=== PATIENT | female | born 1945 | race Caucasian/White ===

== ENCOUNTER 2016-06-02 15:00 | Emergency (ER) | payer MEDICARE | END 2016-06-02 16:20 | disposition home or self-care (01) | LOC: ER1 15:00 | DX: T52.8X1A Toxic effect of other organic solvents, accidental (unintentional), initial encounter (principal); T23.611A Corrosion of second degree of right thumb (nail), initial encounter; E11.628 Type 2 diabetes mellitus with other skin complications; L03.011 Cellulitis of right finger; I10 Essential (primary) hypertension; J45.909 Unspecified asthma, uncomplicated; Z23 Encounter for immunization; Z88.2 Allergy status to sulfonamides; Y92.009 Unspecified place in unspecified non-institutional (private) residence as the place of occurrence of the external cause; Z79.84 Long term (current) use of oral hypoglycemic drugs; Z79.82 Long term (current) use of aspirin; Z79.899 Other long term (current) drug therapy | CPT/HCPCS: 90471; 90715; 99283 ==

== ENCOUNTER 2016-06-15 23:48 | Observation (INO) | payer MEDICARE, OTHER ==
[~2016-06-15] VITALS: Ht 157.5 cm; Wt 103.9 kg
[2016-06-16 03:41] LABS: HEMOGLOBIN 12.3 gm/dl (12.3-15.3); RED BLOOD COUNT 4.05 M/UL (4.00-5.10); WHITE BLOOD COUNT 5.5 K/UL (4.5-11.0)
[2016-06-16 04:02] LABS: BUN/CREATININE RATIO 23 (0-10)
[2016-06-16] MEDS ORDERED: SYNTHROID50 MCG PO (17:56)
[2016-06-16] MEDS ORDERED: POTASSIUM CHLO20 ME1 PO (17:59)
[2016-06-16] MEDS ORDERED: CYMBALTA60 MG PO (18:00)
[2016-06-16] MEDS ORDERED: LOSARTAN-HCTZ1 EACH PO (18:00)
[2016-06-16] MEDS ORDERED: METFORMIN HCL500 MG PO (18:01)
[2016-06-16] MEDS ORDERED: SIMVASTATIN20 MG PO (18:01)
[2016-06-16] MEDS ORDERED: SEROQUEL400 MG PO (18:01)
[2016-06-16] MEDS ORDERED: WELCHOL625 MG PO (19:00)
[2016-06-16] MEDS ORDERED: PRILOSEC OTC20 MG PO (19:01)
== END 2016-06-16 19:52 | disposition home or self-care (01) ==
LOC: ER1 23:48 → M/S 06-16 05:00 → ZEROF 06-16 05:00 → M/S 06-16 06:07
PROVIDERS: Physician Assistant; ADMIT Hospitalist
DX: R07.9 Chest pain, unspecified (principal); R42 Dizziness and giddiness; E03.9 Hypothyroidism, unspecified; I25.10 Atherosclerotic heart disease of native coronary artery without angina pectoris; I10 Essential (primary) hypertension; E11.9 Type 2 diabetes mellitus without complications; E78.5 Hyperlipidemia, unspecified; K52.9 Noninfective gastroenteritis and colitis, unspecified; E66.9 Obesity, unspecified; Z79.899 Other long term (current) drug therapy; Z82.49 Family history of ischemic heart disease and other diseases of the circulatory system; Z68.41 Body mass index [BMI] 40.0-44.9, adult; Z85.828 Personal history of other malignant neoplasm of skin
CPT/HCPCS: ECHO; 36415; 71010; 71020; 78452; 80053; 80061; 81001; 82550; 82553; 82962; 83874; 83880; 84439; 84443; 84484; 85025; 87086; 93005; 93017; 93306; 99285; A9502; G0378; J2785

== ENCOUNTER 2016-06-23 13:14 | Emergency (ER) | payer MEDICARE ==
[~2016-06-23 13:14] MED LIST: CYMBALTA60 MG PO; LOSARTAN-HCTZ1 EACH PO; METFORMIN HCL500 MG PO; POTASSIUM CHLO20 ME1 PO; PRILOSEC OTC20 MG PO; SEROQUEL400 MG PO; SIMVASTATIN20 MG PO; SYNTHROID50 MCG PO; WELCHOL625 MG PO
[2016-06-23 14:31] LABS: HEMOGLOBIN 12.8 gm/dl (12.3-15.3); RED BLOOD COUNT 4.26 M/UL (4.00-5.10); WHITE BLOOD COUNT 5.6 K/UL (4.5-11.0)
[2016-06-23 14:46] LABS: BUN/CREATININE RATIO 18 (0-10)
== END 2016-06-23 20:57 | disposition home or self-care (01) ==
LOC: ER1 13:14
PROVIDERS: Emergency Medicine
DX: R10.31 Right lower quadrant pain (principal); E11.9 Type 2 diabetes mellitus without complications; I10 Essential (primary) hypertension; R11.0 Nausea; Z87.442 Personal history of urinary calculi; Z90.49 Acquired absence of other specified parts of digestive tract
CPT/HCPCS: 36415; 80053; 81001; 82150; 83605; 83690; 85025; 87086; 96361; 96374; 96375; 99284; J2270; J2405; J7050; Q9962

== ENCOUNTER → 2016-07-25 | Outpatient (CLI) | payer MEDICARE | LOC: RAD 10:46 | DX: K92.2 Gastrointestinal hemorrhage, unspecified (principal); R19.7 Diarrhea, unspecified; K57.30 Diverticulosis of large intestine without perforation or abscess without bleeding | CPT/HCPCS: 74270 ==

== ENCOUNTER → 2020-06-16 | Outpatient (CLI) | payer MEDICARE, OTHER ==
[~2020-06-16] MED LIST changes: +AMLODIPINE BESY10 MG PO; +BUSPAR 10MG10 MG PO; +IMDUR ER TAB 6060 MG PO; +MICROZIDE12.5 MG PO; +SYNJARDY PO; +VITAMIN D35000 UNI1 PO
== END ==
LOC: ECHO 05-22 12:00 → NM 05-22 13:00 → ECHO 12:00
DX: I20.9 Angina pectoris, unspecified (principal); I45.10 Unspecified right bundle-branch block
CPT/HCPCS: ECHO; 78452; 93017; 93306; A9502; J2785

== ENCOUNTER → 2020-08-21 | Outpatient (CLI) | payer MEDICARE | LOC: RT 13:02 | DX: I10 Essential (primary) hypertension (principal); I45.10 Unspecified right bundle-branch block; R94.31 Abnormal electrocardiogram [ECG] [EKG] | CPT/HCPCS: 93005 ==

== ENCOUNTER → 2020-12-21 | Outpatient (CLI) | payer MEDICARE | LOC: EXRD 09:38 | DX: M25.542 Pain in joints of left hand (principal); M25.541 Pain in joints of right hand; R76.8 Other specified abnormal immunological findings in serum; M19.042 Primary osteoarthritis, left hand; M19.041 Primary osteoarthritis, right hand | CPT/HCPCS: 73130 ==

== ENCOUNTER → 2021-03-25 | Outpatient (CLI) | payer MEDICARE | LOC: HEART 5 14:09 | DX: R06.02 Shortness of breath (principal) | CPT/HCPCS: 94010; 94729 ==

== ENCOUNTER → 2021-04-07 | Outpatient (CLI) | payer MEDICARE | LOC: HEART 5 08:19 | DX: R07.9 Chest pain, unspecified (principal); R00.2 Palpitations ==

== ENCOUNTER → 2021-04-08 | Outpatient (CLI) | payer MEDICARE | LOC: KOH-I 13:56 → EXRD 15:00 → KOH-I 15:00 | DX: J98.4 Other disorders of lung (principal); R22.0 Localized swelling, mass and lump, head; R22.1 Localized swelling, mass and lump, neck; E04.2 Nontoxic multinodular goiter; R59.0 Localized enlarged lymph nodes; K11.8 Other diseases of salivary glands | CPT/HCPCS: 71250; 76536 ==

== ENCOUNTER → 2021-04-22 | Outpatient (CLI) | payer MEDICARE | LOC: SLEEP 12:03 | DX: G47.33 Obstructive sleep apnea (adult) (pediatric) (principal); J98.4 Other disorders of lung; G47.61 Periodic limb movement disorder | CPT/HCPCS: 95811 ==

== ENCOUNTER → 2021-07-23 | Outpatient (CLI) | payer MEDICARE | LOC: KOH-I 12:21 | DX: M54.50 Low back pain, unspecified (principal); M47.816 Spondylosis without myelopathy or radiculopathy, lumbar region; M16.0 Bilateral primary osteoarthritis of hip; M19.042 Primary osteoarthritis, left hand; M19.041 Primary osteoarthritis, right hand | CPT/HCPCS: 72100; 73130; 73522 ==